=== PATIENT | male | born 1990 | race Two or more races ===

== ENCOUNTER 2023-07-31 11:13 | Emergency (ER) | payer OTHER ==
[~2023-07-31] VITALS: Ht 175.3 cm; Wt 75.5 kg
[2023-07-31 11:59] VITALS: TEMP 98.1
[2023-07-31] MEDS: LIDOCAINE 1% 10 ML VIAL SQ ONE (13:04)
[2023-07-31] MEDS: BACITRACIN 0.9 GM PACKET OINTMENT TP ONE (13:04)
[2023-07-31] MEDS: PERTUSS(ACELL),DIPH,TET VAC/PF 0.5 ML SYRINGE IM. ONE (13:05)
[2023-07-31 13:20] VITALS: BP 118/70; PULSE 72; RESP 16
== END 2023-07-31 13:20 | disposition home or self-care (01) ==
LOC: EMS 11:17
DX: S01.81XA Laceration without foreign body of other part of head, initial encounter (principal); W22.8XXA Striking against or struck by other objects, initial encounter; Y93.89 Activity, other specified; Y92.89 Other specified places as the place of occurrence of the external cause; Y99.8 Other external cause status
CPT/HCPCS: 99283; 90715; 90471; 12013; J3490